=== PATIENT | male | born 1940 | race Hispanic/Latino ===

== ENCOUNTER 2017-12-25 11:00 | Inpatient (IN) | payer OTHER ==
[~2017-12-25] VITALS: Ht 167.6 cm; Wt 69.9 kg
[2018-01-16 15:50] VITALS: BP 150/73
[2018-01-16 16:05] LABS: BASOPHILS % (AUTO) 0.6 % (0.0-5.0); EOSINOPHILS % (AUTO) 2.6 % (0.0-8.0); HEMATOCRIT 39.4 % (42-54); LYMPHOCYTES % (AUTO) 26.2 % (21.0-51.0); MEAN CORPUSCULAR HEMOGLOBIN 31.7 pg (27.0-33.0); MEAN CORPUSCULAR HGB CONC 35.1 g/dL (32.0-36.0); MEAN CORPUSCULAR VOLUME 90.2 fL (79-99); MONOCYTES % (AUTO) 8.7 % (3.0-13.0); NEUTROPHILS % (AUTO) 61.9 % (40.0-77.0); PLATELET COUNT (AUTO) 305 K/uL (130-400); RED BLOOD CELL COUNT(AUTO) 4.37 MIL/uL (4.50-6.20); RED CELL DISTRIBUTION WIDTH 13.6 % (11.0-15.5); WHITE BLOOD COUNT (AUTO) 7.4 K/uL (4.8-10.8)
[2018-01-16 16:17] LABS: CREATININE 0.7 mg/dL (0.5-1.5); POTASSIUM 3.9 mmol/L (3.5-5.1)
[2018-01-16 16:20] LABS: PARTIAL THROMBOPLASTIN TIME 28.9 SEC (26.3-35.5); PROTHROMBIN TIME 10.5 SEC (9.6-11.6)
[2018-01-16 16:30] LABS: APPEARANCE,URINE Clear (CLEAR); BILIRUBIN,URINE Negative (NEGATIVE); COLOR,URINE Yellow (YELLOW); GLUCOSE, URINE (UA) Negative (NEGATIVE); KETONES,URINE Trace mg/dL (NEGATIVE); LEUKOCYTE ESTERASE ,URINE Negative (NEGATIVE); NITRATE,URINE Negative (NEGATIVE); OCCULT BLOOD,URINE Negative (NEGATIVE); PH,URINE 5.5 (5.0-8.0); PROTEIN,URINE Negative (NEGATIVE); UROBILINOGEN,URINE 0.2 mg/dL (0.2-1.0)
[2018-01-17] VITALS (24 sets, daily range): BP systolic 125–173; BP diastolic 55–77
[2018-01-17] MEDS ORDERED: WATER FOR INJECTION,STERILE 20 ML VIAL IJ ONE (08:00)
[2018-01-17] MEDS: CEFAZOLIN SODIUM 1 GM VIAL IVP ONE ×2 (12:00→18:06)
[2018-01-17] MEDS ORDERED: CEFAZOLIN SODIUM 1 GM VIAL ONE ×2 (12:36→14:53)
[2018-01-17] MEDS ORDERED: LACTATED RINGERS 1000ML 1,000 ML IV ONE (12:37)
[2018-01-17] MEDS ORDERED: OMEP40CA37 PO (12:59)
[2018-01-17] MEDS ORDERED: ASPI-1032 PO (12:59)
[2018-01-17] MEDS ORDERED: MULT-1258 PO (12:59)
[2018-01-17] MEDS ORDERED: TAMS0.4C32 PO (12:59)
[2018-01-17] MEDS ORDERED: FURO20TA4 PO ×2 (12:59)
[2018-01-17] MEDS ORDERED: AMLO5TAB2 PO (12:59)
[2018-01-17] MEDS ORDERED: DOCU-133 PO (12:59)
[2018-01-17] MEDS ORDERED: TRAM-355 PO (12:59)
[2018-01-17] MEDS ORDERED: ASPI-555 PO (12:59)
[2018-01-17] MEDS ORDERED: ROPIVACAINE HCL/PF 0.5% 100ML BOTTLE IV ONE (14:00)
[2018-01-17] MEDS ORDERED: KETOROLAC TROMETHAMINE 60 MG/2 ML VIAL IV ONE (14:00)
[2018-01-17] MEDS ORDERED: DEXAMETHASONE SOD PHOSPHATE 10MG/ML 1ML VIAL ONE (14:12)
[2018-01-17] MEDS ORDERED: ONDANSETRON HCL 4 MG/2 ML VIAL ONE (14:12)
[2018-01-17] MEDS ORDERED: PROPOFOL 10 MG/ML 20ML VIAL IV ONE (14:12)
[2018-01-17] MEDS ORDERED: MIDAZOLAM HCL 1 MG/ML 2ML VIAL ONE (14:12)
[2018-01-17] MEDS ORDERED: GLYCOPYRROLATE 0.2 MG/ML 5 ML VIAL ONE (14:12)
[2018-01-17] MEDS ORDERED: LIDOCAINE PF 2% 5ML ABBOJECT ONE (14:12)
[2018-01-17] MEDS ORDERED: FENTANYL CITRATE PF 50 MCG/1 ML 2ML VIAL ONE (14:15)
[2018-01-17] MEDS ORDERED: ROPIVACAINE 0.5% 5MG/ML 30ML IJ ONE (14:17)
[2018-01-17] MEDS ORDERED: ACETAMINOPHEN EXTRA STRENGTH 500 MG TABLET ONE (14:49)
[2018-01-17] MEDS ORDERED: OXYCODONE HCL 10 MG TAB.SR.12H PO ONE (14:49)
[2018-01-17] MEDS ORDERED: KETOROLAC TROMETHAMINE 15MG/ML ONE (14:49)
[2018-01-17] MEDS ORDERED: CELECOXIB 200 MG CAP ONE (14:49)
[2018-01-17] MEDS ORDERED: TRANEXAMIC ACID 1000MG/10ML IV ONE (14:53)
[2018-01-17] MEDS ORDERED: Q-PUMP 1 EACH MISC SCH (15:15)
[2018-01-17] MEDS ORDERED: CEFAZOLIN SODIUM 1 GM VIAL IRRIG ONE (18:34)
[2018-01-17] MEDS ORDERED: POTASSIUM CHLORIDE 20MEQ/100ML 100 ML IV PRN (20:15)
[2018-01-17] MEDS ORDERED: TRAMADOL HCL 50 MG TABLET PO PRN (20:15)
[2018-01-17] MEDS ORDERED: OXYCODONE HCL 5 MG TAB PO PRN (20:15)
[2018-01-17] MEDS ORDERED: ONDANSETRON HCL 4 MG/2 ML VIAL IVP PRN (20:15)
[2018-01-17] MEDS: ACETAMINOPHEN EXTRA STRENGTH 500 MG TABLET PO SCH (20:15)
[2018-01-17] MEDS ORDERED: POTASSIUM CHLORIDE 10% ELIXIR 20 MEQ/15 ML UDCUP PO PRN (20:15)
[2018-01-17] MEDS ORDERED: CALCIUM CARBONATE 500 MG TABLET PO PRN (20:15)
[2018-01-17] MEDS ORDERED: LIDOCAINE HCL-MPF 1% 2ML VIAL IVP PRN (20:15)
[2018-01-17] MEDS ORDERED: DiphenhydrAMINE HCL 50 MG/ML VIAL IVP PRN (20:15)
[2018-01-17] MEDS ORDERED: FERROUS FUMARATE 324 MG TABLET PO PRN (20:15)
[2018-01-17] MEDS ORDERED: MEPERIDINE-PF 50 MG/ML SYG ONE (20:39)
[2018-01-17] MEDS: CELECOXIB 200 MG CAP PO SCH (21:00)
[2018-01-17] MEDS: ASPIRIN 325 MG TABLET PO SCH (21:00)
[2018-01-17] MEDS ORDERED: FUROSEMIDE 20 MG TABLET PO PRN (22:15)
[2018-01-17] MEDS ORDERED: PHARMACY COMMUNICATION MISC SCH (23:15)
[2018-01-17] MEDS: SODIUM CHLORIDE 0.9% 1000ML 1,000 ML IV SCH (23:35)
[2018-01-18] MEDS: CEFAZOLIN SODIUM 1 GM VIAL IVP SCH ×2 (00:56→09:01)
[2018-01-18] MEDS: KETOROLAC TROMETHAMINE 15MG/ML IV PRN (00:58)
[2018-01-18] MEDS ORDERED: CEFAZOLIN 2GM / 50 ML 50 ML IV SCH (01:15)
[2018-01-18] MEDS: ACETAMINOPHEN EXTRA STRENGTH 500 MG TABLET PO SCH ×3 (03:59→20:13)
[2018-01-18 05:16] LABS: HEMATOCRIT 29.7 % (42-54); MEAN CORPUSCULAR HEMOGLOBIN 32.7 pg (27.0-33.0); MEAN CORPUSCULAR HGB CONC 36.1 g/dL (32.0-36.0); MEAN CORPUSCULAR VOLUME 90.7 fL (79-99); PLATELET COUNT (AUTO) 202 K/uL (130-400); RED BLOOD CELL COUNT(AUTO) 3.28 MIL/uL (4.50-6.20); RED CELL DISTRIBUTION WIDTH 13.4 % (11.0-15.5)
[2018-01-18 05:22] LABS: CREATININE 0.7 mg/dL (0.5-1.5); POTASSIUM 3.5 mmol/L (3.5-5.1)
[2018-01-18] MEDS: POTASSIUM CHLORIDE 20 MEQ ERTAB PO PRN ×2 (06:12→09:00)
[2018-01-18] MEDS: SODIUM CHLORIDE 0.9% 1000ML 1,000 ML IV SCH ×2 (06:19→15:07)
[2018-01-18] MEDS: OXYCODONE HCL 5 MG TAB PO PRN ×2 (06:19→15:13)
[2018-01-18 08:11] VITALS: BP 156/82
[2018-01-18] MEDS: ASPIRIN 325 MG TABLET PO SCH ×2 (08:58→20:12)
[2018-01-18] MEDS: POLYETHYLENE GLYCOL 3350 17 GM POWD.PACK PO SCH (08:58)
[2018-01-18] MEDS: AMLODIPINE BESYLATE 5 MG TAB PO SCH (08:59)
[2018-01-18] MEDS: CELECOXIB 200 MG CAP PO SCH ×2 (08:59→20:12)
[2018-01-18] MEDS ORDERED: TAMSULOSIN HCL 0.4 MG CAP.ER.24H PO SCH ×2 (09:00→21:00)
[2018-01-18] MEDS: PANTOPRAZOLE SODIUM 40 MG TABLET.DR PO SCH (09:00)
[2018-01-18] MEDS: DOCUSATE SODIUM 100 MG CAP PO SCH (09:08)
[2018-01-18 11:17] VITALS: BP 133/65
[2018-01-18 16:00] VITALS: BP 143/54
[2018-01-18 20:00] VITALS: BP 133/70
[2018-01-19] VITALS: BP 110/50
[2018-01-19] MEDS: OXYCODONE HCL 5 MG TAB PO PRN ×2 (00:18→05:21)
[2018-01-19] MEDS: ACETAMINOPHEN EXTRA STRENGTH 500 MG TABLET PO SCH ×2 (03:55→12:21)
[2018-01-19 04:00] VITALS: BP 134/66
[2018-01-19 07:33] VITALS: BP 113/52
[2018-01-19] MEDS: DOCUSATE SODIUM 100 MG CAP PO SCH (07:37)
[2018-01-19] MEDS: AMLODIPINE BESYLATE 5 MG TAB PO SCH (07:37)
[2018-01-19] MEDS: PANTOPRAZOLE SODIUM 40 MG TABLET.DR PO SCH (07:37)
[2018-01-19] MEDS: CELECOXIB 200 MG CAP PO SCH (07:37)
[2018-01-19] MEDS: POLYETHYLENE GLYCOL 3350 17 GM POWD.PACK PO SCH (07:37)
[2018-01-19] MEDS: ASPIRIN 325 MG TABLET PO SCH (07:37)
[2018-01-19] MEDS: KETOROLAC TROMETHAMINE 15MG/ML IV PRN (07:38)
[2018-01-19 11:31] VITALS: BP 113/52
[2018-01-19] MEDS ORDERED: ASPI-1012 PO (14:46)
[2018-01-19] MEDS ORDERED: HYDR-2132 PO (14:46)
[2018-01-19 16:00] VITALS: BP 115/54
[2018-01-20] MEDS ORDERED: BISACODYL 10 MG SUPP.RECT RC PRN (20:15)
== END 2018-01-19 19:30 | disposition home health service (06) | DRG 470 ==
LOC: EDSTATUS 01-16 15:30 → DAHIP 01-17 11:43 → 4AH 01-17 22:00
PROVIDERS: ADMIT Orthopaedic Surgery; ATTEND Orthopaedic Surgery
PROC: 0SRB01Z Replacement of Left Hip Joint with Metal Synthetic Substitute, Open Approach (ICD-10-PCS; principal; 2018-01-17 17:40)
DX: M16.12 Unilateral primary osteoarthritis, left hip (principal); Z96.641 Presence of right artificial hip joint; G89.29 Other chronic pain; I10 Essential (primary) hypertension
CPT/HCPCS: 36415; 73503; 80048; 81003; 85025; 85027; 85610; 85730; 88304; 88311; 96374; 97039; A4218; C1776; J0690; J1100; J1885; J2001; J2175; J2250; J2405; J2704; J2795; J3010; J3490; J7030; J7120

== ENCOUNTER → 2020-02-04 | Outpatient (CLI) | payer OTHER | END | disposition home or self-care (01) | LOC: RAH 10:52 | PROVIDERS: ATTEND Internal Medicine | DX: M16.0 Bilateral primary osteoarthritis of hip (principal); M43.16 Spondylolisthesis, lumbar region; M48.061 Spinal stenosis, lumbar region without neurogenic claudication; Z96.643 Presence of artificial hip joint, bilateral ==

== ENCOUNTER → 2020-08-11 | Outpatient (CLI) | payer OTHER ==
[~2020-08-11] MED LIST: AMLO-257 PO; ASPI-1012 PO; DOCU-133 PO; FURO20TA4 PO; HYDR-2132 PO; MULT-1258 PO; OMEP40CA13 PO; TAMS0.4C32 PO
== END | disposition home or self-care (01) ==
LOC: RAH 08:30
PROVIDERS: ATTEND Internal Medicine
DX: M51.27 Other intervertebral disc displacement, lumbosacral region (principal); M19.90 Unspecified osteoarthritis, unspecified site; M48.061 Spinal stenosis, lumbar region without neurogenic claudication; N28.1 Cyst of kidney, acquired
CPT/HCPCS: 72148; 73590; 73610; 73630

== ENCOUNTER → 2020-08-27 | Outpatient (CLI) | payer OTHER | END | disposition home or self-care (01) | LOC: SHCH 14:17 | PROVIDERS: ATTEND Internal Medicine Cardiovascular Disease | DX: R55 Syncope and collapse (principal); I10 Essential (primary) hypertension; I51.7 Cardiomegaly | CPT/HCPCS: 93306; 93356 ==

== ENCOUNTER → 2020-09-10 | Outpatient (CLI) | payer OTHER ==
[~2020-09-10] MED LIST changes: +ACET-2743 PO; +CHOL2000 PO; +NAPR220C15 PO
[2020-09-10 11:21] LABS: BASOPHILS % (AUTO) 0.6 % (0.0-5.0); EOSINOPHILS % (AUTO) 1.2 % (0.0-8.0); HEMATOCRIT 38.1 % (42-54); MEAN CORPUSCULAR HEMOGLOBIN 30.7 pg (27.0-33.0); MEAN CORPUSCULAR HGB CONC 34.4 g/dL (32.0-36.0); MEAN CORPUSCULAR VOLUME 89.2 fL (79-99); MONOCYTES % (AUTO) 8.8 % (3.0-13.0); NEUTROPHILS % (AUTO) 68.2 % (40.0-77.0); PLATELET COUNT (AUTO) 299 K/uL (130-400); RED BLOOD CELL COUNT(AUTO) 4.27 MIL/uL (4.50-6.20); RED CELL DISTRIBUTION WIDTH 13.1 % (11.0-15.5); WHITE BLOOD COUNT (AUTO) 5.1 K/uL (4.8-10.8)
[2020-09-10 11:30] LABS: CREATININE 0.5 mg/dL (0.5-1.5); POTASSIUM 3.9 mmol/L (3.5-5.1)
[2020-09-14 09:05] VITALS: BP_SYST 151; BP_SYST 198; BP_DIAS 66; BP_DIAS 80
== END | disposition home or self-care (01) ==
LOC: EDSTATUS 09:00 → DAH 10:00 → EDSTATUS 09-15 09:00
PROVIDERS: ATTEND Neurological Surgery
DX: Z20.828 Contact with and (suspected) exposure to other viral communicable diseases (principal); M48.061 Spinal stenosis, lumbar region without neurogenic claudication
CPT/HCPCS: 36415; 80048; 85025; A6260; U0003

== ENCOUNTER 2020-09-29 06:00 | Observation (INO) | payer OTHER ==
[~2020-09-29] VITALS: Ht 170.2 cm; Wt 65.0 kg
[2020-09-29] VITALS (24 sets, daily range): BP systolic 99–149; BP diastolic 43–91
[~2020-09-29 06:00] MED LIST changes: -ACET-2743 PO; -ASPI-1012 PO; -CHOL2000 PO; -DOCU-133 PO; -FURO20TA4 PO; -HYDR-2132 PO; -MULT-1258 PO; -NAPR220C15 PO; +TAMS-1 PO; -TAMS0.4C32 PO
[2020-09-29] MEDS ORDERED: LACTATED RINGERS 1000ML 1,000 ML IV ONE (07:58)
[2020-09-29] MEDS ORDERED: SODIUM CHLORIDE 0.9% 10 ML VIAL ONE (08:29)
[2020-09-29] MEDS: CEFAZOLIN SODIUM 1 GM VIAL IVP SCH ×4 (08:30→18:16)
[2020-09-29] MEDS: BUPIVACAINE/EPI/PF 0.25% 30ML VIAL IJ SCH ×2 (08:30→10:19)
[2020-09-29 08:33] LABS: CREATININE 0.5 mg/dL (0.5-1.5); POTASSIUM 3.6 mmol/L (3.5-5.1)
[2020-09-29] MEDS ORDERED: ROCURONIUM 10MG/1ML SYR 10 MG/ML ML ONE ×2 (09:19→10:31)
[2020-09-29] MEDS ORDERED: PROPOFOL 10 MG/ML 20ML VIAL IV ONE ×3 (09:19→10:15)
[2020-09-29] MEDS ORDERED: LIDOCAINE PF 2% 5ML ABBOJECT ONE (09:19)
[2020-09-29] MEDS ORDERED: THROMBIN-JMI 20000 UNIT KIT TP ONE (09:20)
[2020-09-29] MEDS ORDERED: CEFAZOLIN SODIUM 1 GM VIAL ONE (09:20)
[2020-09-29] MEDS ORDERED: DURAMORPH PF1 MG/ML 10ML AMP IV ONE (09:20)
[2020-09-29] MEDS ORDERED: GENTAMICIN 80 MG/NS 100 ML PB 100 ML IV ONE (09:42)
[2020-09-29] MEDS ORDERED: DEXAMETHASONE SOD PHOSPHATE 10MG/ML 1ML VIAL ONE (10:13)
[2020-09-29] MEDS ORDERED: FENTANYL CITRATE PF 50 MCG/1 ML 2ML VIAL ONE ×2 (10:17→12:32)
[2020-09-29] MEDS ORDERED: PROPOFOL 1000 MG/100 ML 100 ML IV ONE (12:10)
[2020-09-29] MEDS ORDERED: ONDANSETRON HCL 4 MG/2 ML VIAL ONE (12:39)
[2020-09-29] MEDS ORDERED: NEOSTIGMINE 5MG/5ML SYR IV ONE (12:55)
[2020-09-29] MEDS ORDERED: GLYCOPYRROLATE 1 MG/5 ML SYRINGE ONE (12:55)
[2020-09-29] MEDS ORDERED: ESMOLOL HCL 10 MG/ML 10 ML VIAL ONE (12:58)
[2020-09-29] MEDS ORDERED: SODIUM CHLORIDE 0.9% 10 ML VIAL IVP PRN (13:00)
[2020-09-29] MEDS ORDERED: PROMETHAZINE HCL 25 MG/ML 1ML AMPULE IM PRN (13:00)
[2020-09-29] MEDS: PANTOPRAZOLE SODIUM 40 MG TABLET.DR PO SCH (13:32)
[2020-09-29] MEDS: DEXAMETHASONE SOD PHOSPHATE 4 MG/ML 1ML VIAL IVP SCH ×2 (18:16→20:48)
[2020-09-29] MEDS: LACTATED RINGERS 1000ML 1,000 ML IV SCH ×2 (18:17→20:48)
[2020-09-29] MEDS: TAMSULOSIN HCL 0.4 MG CAP.ER.24H PO SCH (20:48)
[2020-09-30] VITALS (7 sets, daily range): BP systolic 126–141; BP diastolic 47–70
[2020-09-30] MEDS: DEXAMETHASONE SOD PHOSPHATE 4 MG/ML 1ML VIAL IVP SCH ×4 (01:09→20:02)
[2020-09-30] MEDS: CEFAZOLIN SODIUM 1 GM VIAL IVP SCH (01:09)
[2020-09-30] MEDS: PANTOPRAZOLE SODIUM 40 MG TABLET.DR PO SCH (05:59)
[2020-09-30] MEDS: AMLODIPINE BESYLATE 5 MG TAB PO SCH (08:50)
[2020-09-30] MEDS: LACTATED RINGERS 1000ML 1,000 ML IV SCH (15:48)
[2020-09-30] MEDS: HYDROCODONE/ACETAMINOPHEN 5/325 MG TAB PO PRN (20:00)
[2020-09-30] MEDS: BALSAM PERU/CASTOR OIL 60 GM TUBE TP SCH (21:00)
[2020-09-30] MEDS: TAMSULOSIN HCL 0.4 MG CAP.ER.24H PO SCH (21:14)
[2020-10-01] MEDS: LACTATED RINGERS 1000ML 1,000 ML IV SCH ×2 (01:28→11:53)
[2020-10-01] MEDS: MORPHINE SULFATE 2 MG/ML 1ML SYG IVP PRN ×2 (01:29→14:37)
[2020-10-01] MEDS: DEXAMETHASONE SOD PHOSPHATE 4 MG/ML 1ML VIAL IVP SCH ×3 (01:29→12:23)
[2020-10-01 03:32] VITALS: BP 145/62
[2020-10-01 07:30] VITALS: BP 135/65
[2020-10-01] MEDS: PANTOPRAZOLE SODIUM 40 MG TABLET.DR PO SCH (08:24)
[2020-10-01] MEDS: AMLODIPINE BESYLATE 5 MG TAB PO SCH (08:24)
[2020-10-01] MEDS: BALSAM PERU/CASTOR OIL 60 GM TUBE TP SCH ×3 (08:26→23:24)
[2020-10-01] MEDS: HYDROCODONE/ACETAMINOPHEN 5/325 MG TAB PO PRN ×3 (09:25→21:46)
[2020-10-01 11:00] VITALS: BP 142/65
[2020-10-01] MEDS: TAMSULOSIN HCL 0.4 MG CAP.ER.24H PO SCH (12:24)
[2020-10-01 19:54] VITALS: BP 133/60
[2020-10-01 23:42] VITALS: BP 148/76
== END 2020-10-02 00:40 ==
LOC: DAHIP 06:00 → EDSTATUS 09:00 → 3DH 14:52
PROVIDERS: ADMIT Neurological Surgery; ATTEND Neurological Surgery
DX: M48.061 Spinal stenosis, lumbar region without neurogenic claudication (principal); Z20.828 Contact with and (suspected) exposure to other viral communicable diseases; I10 Essential (primary) hypertension; K21.9 Gastro-esophageal reflux disease without esophagitis; L89.322 Pressure ulcer of left buttock, stage 2; L89.312 Pressure ulcer of right buttock, stage 2; Z99.3 Dependence on wheelchair; Z79.82 Long term (current) use of aspirin; Z79.899 Other long term (current) drug therapy
CPT/HCPCS: 36415; 63047; 63048 ×3; 72020; 80048; 87426; 96361 ×3; 96374; 96375 ×2; 96376 ×3; 97039 ×4; 97161; A4215; A4221; A4222; A4223; A4344; A4649 ×3; A4663; G0378 ×59; G8979; G8980; G8981; G8982; G8983; J0690 ×4; J1100 ×10; J1580; J2001; J2274; J2405; J2704 ×4; J2710; J3010 ×2; J3490 ×3; J7120 ×5